=== PATIENT | male | born 1970 | race African-American/Black ===

== ENCOUNTER 2020-10-12 03:01 | Emergency (ER) | payer OTHER ==
[~2020-10-12] VITALS: Ht 182.9 cm; Wt 95.0 kg
[2020-10-12] MEDS ORDERED: METOCLOPRAMIDE HCL 10MG/2ML VIAL IV STA (04:06)
[2020-10-12] MEDS ORDERED: SODIUM CHLORIDE 0.9% 1,000 ML IV ONE (04:15)
[2020-10-12 04:24] LABS: EOSINOPHILS % 0.2 % (0.0-5.0); HEMOGLOBIN. 13.8 g/dL (14.0-18.0); LYMPHOCYTES % 26.9 % (20.0-50.0); MEAN CORPUSCULAR HEMOGLOBIN 35.5 pg (28.0-32.0); MEAN PLATELET VOLUME 8.7 fl (7.4-10.4); MONOCYTES % 9.6 % (2.0-8.0); NEUTROPHILS % 62.3 % (40.0-76.0); PLATELET 161 x1000/uL (130-400); RED BLOOD CELL COUNT 3.89 mill/uL (4.7-6.1); RED CELL DISTRIBUTION WIDTH 11.9 % (11.6-14.6)
[2020-10-12 04:32] LABS: CHLORIDE 99 mEq/L (98-107)
[2020-10-12 04:36] LABS: ETHANOL BLOOD < 10 mg/dL
[2020-10-12] MEDS ORDERED: ONDA4TAB5 MT (05:45)
[2020-10-12 06:00] VITALS: BP 143/71
== END 2020-10-12 06:39 | disposition home or self-care (01) ==
LOC: ER 03:01
DX: K29.70 Gastritis, unspecified, without bleeding (principal)
CPT/HCPCS: 36415; 76705; 80053; 80320; 83605; 83690; 85025; 93005; 96361; 96374; 99285; J2765; J7030; G0480